=== PATIENT | female | born 1960 | race Caucasian/White ===

== ENCOUNTER 2020-06-21 10:54 | Outpatient (CLI) | payer OTHER ==
[~2020-06-21 10:54] MED LIST: KETO10TA2 PO
== END 2020-06-21 15:54 | disposition home or self-care (01) ==
LOC: OFIC 805 10:54
PROVIDERS: ATTEND Otolaryngology
DX: H90.3 Sensorineural hearing loss, bilateral (principal); H61.23 Impacted cerumen, bilateral